=== PATIENT | female | born 1990 | race Caucasian/White ===

== ENCOUNTER 2016-05-30 20:07 | Inpatient (IN) | payer MEDICAID, OTHER ==
[~2016-05-30] VITALS: Ht 165.1 cm; Wt 84.4 kg
[~2016-05-30 20:07] MED LIST: LIDOCAINE 2% 5 ML IV ONE
[2016-05-30] MEDS ORDERED: PENICILLIN G 5 MU in SODIUM CHLORIDE 0.9% 250 ML IV ONE (20:15)
[2016-05-30] MEDS ORDERED: FAMOTIDINE 20 MG TAB PO PRN (20:15)
[2016-05-30] MEDS ORDERED: TERBUTALINE 1 MG/ML VIAL SUBQ PRN (20:15)
[2016-05-30] MEDS ORDERED: METOCLOPRAMIDE 10 MG/2 ML VIAL IV PUSH PRN (20:15)
[2016-05-30] MEDS ORDERED: CEFAZOLIN (LD/OB) 100 ML IV PRN (20:15)
[2016-05-30] MEDS ORDERED: MORPHINE 5 MG/1 ML VIAL IV PRN (20:15)
[2016-05-30] MEDS ORDERED: OXYTOCIN 15 UNITS/250 ML NS 250 ML IV SCH (20:15)
[2016-05-30] MEDS ORDERED: FAMOTIDINE 20 MG INJ IV PRN (20:15)
[2016-05-30] MEDS ORDERED: ONDANSETRON 4 MG VIAL IV PRN (20:15)
[2016-05-30] MEDS ORDERED: PROMETHAZINE 25 MG/ML VIAL IV PRN (20:15)
[2016-05-30] MEDS ORDERED: LIDOCAINE 1% BUFFERED 1 ML SYR INTRADERM PRN (20:15)
[2016-05-30] MEDS ORDERED: LIDOCAINE 1% 30 ML PF INFILTRATE ONE (20:15)
[2016-05-30] MEDS ORDERED: LACT RINGERS 1,000 ML IV SCH (20:15)
[2016-05-30] MEDS ORDERED: ALU/MAG/SIM 30 ML UDC PO PRN (20:15)
[2016-05-30 20:31] VITALS: Ht 165.1 cm; Wt 84.4 kg
[2016-05-30] MEDS ORDERED: ROPIV/FENT 0.2%-2MCG/ML 100 ML EPIDURAL ONE (20:35)
[2016-05-30] MEDS ORDERED: FENTANYL 100 MCG/2 ML AMP ONE (20:36)
[2016-05-30] MEDS ORDERED: FENTANYL 100 MCG/2 ML AMP EPIDURAL ONE (21:15)
[2016-05-30] MEDS ORDERED: LACT RINGERS 500 ML IV ONE (21:15)
[2016-05-30] MEDS ORDERED: LACT RINGERS 500 ML IV PRN (21:15)
[2016-05-30] MEDS ORDERED: SODIUM CHLORIDE 0.9% 500 ML IV PRN (21:15)
[2016-05-30] MEDS ORDERED: ROPIV/FENT 0.2%-2MCG/ML 100 ML EPIDURAL SCH (21:15)
[2016-05-30 22:00] VITALS: BP_SYST 104; RESP 20; TEMP 98.3
[2016-05-30] MEDS: MISOPROSTOL 200 MCG TAB PO SCH (22:03)
[2016-05-30 22:15] VITALS: BP_SYST 108; RESP 20
[2016-05-30] MEDS ORDERED: MEASLES,MUMPS,RUBELLA VAC SUBQ.VACC ONE (22:20)
[2016-05-30] MEDS ORDERED: TDaP 0.5 ML VIAL IM.VACC ONE (22:20)
[2016-05-30] MEDS ORDERED: DERMOPLAST SPRAY TOPICAL PRN (22:20)
[2016-05-30] MEDS ORDERED: ASTRINGENT MED PADS 40'S TOPICAL PRN (22:20)
[2016-05-30] MEDS ORDERED: MAG HYDROX 30 ML UDC PO PRN (22:20)
[2016-05-30] MEDS ORDERED: ZOLPIDEM 5 MG TAB PO PRN (22:20)
[2016-05-30] MEDS ORDERED: OXYTOCIN 15 UNITS/250 ML NS 250 ML IV ONE (22:20)
[2016-05-30 22:30] VITALS: BP_SYST 101; RESP 18
[2016-05-30 22:45] VITALS: BP_SYST 105; RESP 16
[2016-05-30 23:00] VITALS: BP_SYST 103; RESP 18
[2016-05-30 23:30] VITALS: BP_SYST 112; RESP 18
[2016-05-31] VITALS (7 sets, daily range): BP systolic 97–118; RESP 14–20; TEMP 97.6–98.5
[2016-05-31] MEDS: Ibuprofen 600 MG TAB PO SCH ×5 (00:05→23:45)
[2016-05-31] MEDS ORDERED: PENICILLIN G 2.5 MU in SODIUM CHLORIDE 0.9% 100 ML IV SCH (00:15)
[2016-05-31] MEDS: MISOPROSTOL 200 MCG TAB PO SCH (01:20)
[2016-05-31] MEDS ORDERED: MISOPROSTOL 100 MCG TAB ONE (03:31)
[2016-05-31] MEDS ORDERED: **ONLY ANESTEHSIA MAY ORDER OPIATES WHILE ON EPIDURAL XX SCH (08:00)
[2016-05-31] MEDS: DOCUSATE SOD 100 MG CAP PO SCH (09:00)
[2016-06-01 05:38] VITALS: BP_SYST 91; RESP 16; TEMP 98.2
[2016-06-01] MEDS: Ibuprofen 600 MG TAB PO SCH ×2 (05:46→11:09)
[2016-06-01] MEDS: DOCUSATE SOD 100 MG CAP PO SCH (08:40)
[2016-06-01 09:34] VITALS: BP_SYST 110; RESP 20; TEMP 97.7
[2016-06-01 09:35] VITALS: RESP 20
== END 2016-06-01 11:36 | disposition home or self-care (01) | DRG 775 ==
LOC: LDOP 20:07 → LD 20:23 → OB 05-31 01:00
PROVIDERS: ADMIT Obstetrics & Gynecology Reproductive Endocrinology; ATTEND Obstetrics & Gynecology Reproductive Endocrinology
PROC: 10E0XZZ Delivery of Products of Conception, External Approach (ICD-10-PCS; principal; 2016-05-30)
PROC: 0HQ9XZZ Repair Perineum Skin, External Approach (ICD-10-PCS; 2016-05-30)
DX: O70.0 First degree perineal laceration during delivery (principal); Z37.0 Single live birth; Z3A.39 39 weeks gestation of pregnancy
CPT/HCPCS: 85025; 86850; 86900; 86901; 86970; 90707; 96372